=== PATIENT | female | born 1965 | race African-American/Black ===

== ENCOUNTER 2020-08-11 02:25 | Emergency (ER) | payer BC ==
[~2020-08-11] VITALS: Ht 170.2 cm; Wt 63.5 kg
[~2020-08-11 02:25] MED LIST: CLON2TAB11 PO; DULO60CA41 PO; MILN50TA PO; PERCOCET PO; TIZA4TAB6 PO; TOPI200T PO
[2020-08-11] MEDS ORDERED: FLUORESCEIN SODIUM 1 MG OPHTHALMIC STRIP OP ONE (02:26)
[2020-08-11 02:40] VITALS: BP_SYST 163
[2020-08-11] MEDS ORDERED: DEXAMETHASONE SOD PHOSPHATE 10 MG/ML VIAL IVP ONE (03:00)
[2020-08-11] MEDS ORDERED: FAMOTIDINE PF 20 MG/2 ML VIAL IVP ONE (03:00)
[2020-08-11] MEDS ORDERED: DIPHENHYDRAMINE INJ 50 MG/ML VIAL IVP ONE (03:00)
[2020-08-11] MEDS ORDERED: TETRACAINE HCL/PF 0.5% OPHTHALMIC DROPS 4 ML OP ONE (03:21)
[2020-08-11] MEDS ORDERED: LORazepam 2 MG/ML VIAL IVP ONE (03:30)
[2020-08-11] MEDS ORDERED: MORPHINE 2 MG/ML INJ. SYRINGE IVP ONE (03:30)
[2020-08-11] MEDS ORDERED: TOBRAMYCIN/DEXAMETHASONE Non-Formulary 3.5 GM EYE OINT. OP ONE (04:15)
[2020-08-11 05:37] VITALS: BP_SYST 163
== END 2020-08-11 05:37 | disposition home or self-care (01) ==
LOC: SED 02:25
DX: S05.01XA Injury of conjunctiva and corneal abrasion without foreign body, right eye, initial encounter (principal); Z86.73 Personal history of transient ischemic attack (TIA), and cerebral infarction without residual deficits; Z79.899 Other long term (current) drug therapy; X58.XXXA Exposure to other specified factors, initial encounter; Y93.89 Activity, other specified; Y92.89 Other specified places as the place of occurrence of the external cause; Y99.8 Other external cause status
CPT/HCPCS: 96374; 96375; 99284; J1100; J1200; J2060; J2270; J3490